=== PATIENT | male | born 1955 | race Hispanic/Latino ===

== ENCOUNTER → 2018-05-11 | Outpatient (CLI) | payer BC | END | disposition home or self-care (01) | LOC: OIH 09:28 | PROVIDERS: ATTEND Internal Medicine | DX: M86.8X7 Other osteomyelitis, ankle and foot (principal); M85.871 Other specified disorders of bone density and structure, right ankle and foot | CPT/HCPCS: 73660 ==

== ENCOUNTER 2021-02-23 00:55 | Emergency (ER) | payer BC, OTHER ==
[~2021-02-23] VITALS: Ht 175.3 cm; Wt 95.3 kg
[2021-02-23 00:59] VITALS: BP 160/99
[2021-02-23 01:21] LABS: BASOPHILS % (AUTO) 0.4 % (0.0-5.0); EOSINOPHILS % (AUTO) 0.5 % (0.0-8.0); HEMATOCRIT 41.4 % (42-54); LYMPHOCYTES % (AUTO) 8.8 % (21.0-51.0); MEAN CORPUSCULAR HEMOGLOBIN 30.3 pg (27.0-33.0); MEAN CORPUSCULAR HGB CONC 33.8 g/dL (32.0-36.0); MEAN CORPUSCULAR VOLUME 89.6 fL (79-99); MONOCYTES % (AUTO) 4.4 % (3.0-13.0); PLATELET COUNT (AUTO) 194 K/uL (130-400); RED BLOOD CELL COUNT(AUTO) 4.62 MIL/uL (4.50-6.20); RED CELL DISTRIBUTION WIDTH 12.7 % (11.0-15.5); WHITE BLOOD COUNT (AUTO) 11.5 K/uL (4.8-10.8)
[2021-02-23] MEDS ORDERED: ONDANSETRON 4MG INJ IVP ONE (01:30)
[2021-02-23 01:31] LABS: CREATININE 1.7 mg/dL (0.5-1.5); POTASSIUM 4.9 mmol/L (3.5-5.1)
[2021-02-23 01:36] LABS: ALBUMIN 3.5 g/dL (3.5-5.0); BILIRUBIN,TOTAL 0.4 mg/dL (0.2-1.0); TOTAL PROTEIN, SERUM 7.6 g/dL (6.0-8.3)
[2021-02-23] MEDS ORDERED: PANTOPRAZOLE 40 MG/VIAL IVP SCH (04:00)
[2021-02-23] MEDS ORDERED: METOCLOPRAMIDE 10 MG/2 ML VIAL IVP ONE (04:00)
[2021-02-23] MEDS ORDERED: 0.9%NACL 1000ML 1,000 ML IV ONE (04:00)
[2021-02-23] MEDS ORDERED: FAMOTIDINE 20MG VIAL IV ONE (04:00)
[2021-02-23] MEDS ORDERED: DiphenhydrAMINE HCL 50 MG/ML VIAL IV ONE (04:00)
[2021-02-23 04:51] VITALS: BP 169/87
[2021-02-23 05:07] LABS: APPEARANCE,URINE CLEAR (CLEAR); BILIRUBIN,URINE NEGATIVE (NEGATIVE); COLOR,URINE YELLOW (YELLOW); GLUCOSE, URINE (UA) >=1000 mg/dL (NEGATIVE); KETONES,URINE 5 mg/dL (NEGATIVE); LEUKOCYTE ESTERASE ,URINE NEGATIVE (NEGATIVE); NITRATE,URINE NEGATIVE (NEGATIVE); OCCULT BLOOD,URINE SMALL (NEGATIVE); PH,URINE 6.5 (5.0-8.0); PROTEIN,URINE >=300 mg/dL (NEGATIVE); UROBILINOGEN,URINE 0.2 mg/dL (0.2-1.0)
[2021-02-23 05:16] LABS: BACTERIA,URINE None Seen /HPF (None Seen); SQUAMOUS EPITHELIAL CELL,UR Few /HPF (0-2)
[2021-02-23] MEDS ORDERED: METO-296 PO (06:07)
[2021-02-23] MEDS ORDERED: PANT40TA54 PO (06:07)
[2021-02-23] MEDS ORDERED: ONDA4TAB10 PO (06:07)
[2021-02-23] MEDS ORDERED: DICY20TA2 PO (06:07)
[2021-02-23] MEDS ORDERED: MAG/ALUM/SIMETH 30 ML UDCUP PO ONE (06:30)
[2021-02-23] MEDS ORDERED: LIDOCAINE HCL 2% VISCOUS 15 ML UDCUP PO ONE (06:30)
[2021-02-23] MEDS ORDERED: LIDOCAINE HCL 2% VISCOUS 15 ML UDCUP ONE (06:32)
[2021-02-23] MEDS ORDERED: MAG/ALUM/SIMETH 30 ML UDCUP ONE (06:32)
[2021-02-23 07:00] VITALS: BP 132/85
== END 2021-02-23 07:02 | disposition home or self-care (01) ==
LOC: EDH 01:12
DX: K29.70 Gastritis, unspecified, without bleeding (principal); E86.9 Volume depletion, unspecified; E78.00 Pure hypercholesterolemia, unspecified; E11.9 Type 2 diabetes mellitus without complications; I10 Essential (primary) hypertension; Z79.899 Other long term (current) drug therapy
CPT/HCPCS: 36415; 76705; 80053; 81001; 83690; 84484; 85025; 93005; 96361; 96374; 96375; 99285; C9113; J1200; J2405; J2765; J3490; J7030

== ENCOUNTER → 2022-01-02 | Outpatient (CLI) | payer OTHER ==
[~2022-01-02] MED LIST: DICY20TA2 PO; METO-296 PO; ONDA4TAB10 PO; PANT40TA54 PO
== END | disposition home or self-care (01) ==
LOC: RAH 10:35
PROVIDERS: ATTEND Internal Medicine
DX: M47.815 Spondylosis without myelopathy or radiculopathy, thoracolumbar region (principal); I10 Essential (primary) hypertension
CPT/HCPCS: 71046